=== PATIENT | male | born 1970 | race African-American/Black ===

== ENCOUNTER 2020-11-27 10:12 | Emergency (ER) | payer BC ==
[~2020-11-27] VITALS: Ht 165.1 cm; Wt 68.0 kg
[2020-11-27 10:13] VITALS: BP 121/74
[2020-11-27] MEDS ORDERED: FLEXERIL PO (11:08)
[2020-11-27] MEDS ORDERED: MEDROLDOSEPACK PO (11:08)
[2020-11-27] MEDS ORDERED: HYDROCODON-ACE1 EAC7 PO (11:08)
== END 2020-11-27 11:01 | disposition home or self-care (01) ==
LOC: ER 10:12
DX: M54.41 Lumbago with sciatica, right side (principal)